=== PATIENT | male | born 1950 | race Hispanic/Latino ===

== ENCOUNTER 2020-10-14 11:08 | Observation (INO) | payer MEDICARE ==
[2020-10-09 14:52] LABS: BASOPHILS # (AUTO) 0.1 (0.0-0.1); EOSINOPHILS # (AUTO) 0.5 (0.0-0.4); EOSINOPHILS % 6.2 % (0.0-6.0); HEMATOCRIT 40.9 % (38.2-49.6); HEMOGLOBIN 13.1 g/dL (14.0-18.0); LYMPHOCYTES # (AUTO) 1.8 (1.0-3.2); LYMPHOCYTES % 24.4 % (18.0-39.1); MEAN CORPUSCULAR HEMOGLOBIN 28.2 pg (28-32); MONOCYTES # (AUTO) 0.5 (0.2-0.8); MONOCYTES % 7.3 % (4.4-11.3); NEUTROPHILS # (AUTO) 4.5 (2.1-6.9); NEUTROPHILS % 60.8 % (38.7-80.0); PLATELET COUNT 185 x10e3/uL (140-360); RED BLOOD COUNT 4.65 x10e6/uL (4.3-5.7); RED CELL DISTRIBUTION WIDTH 13.8 % (11.7-14.4)
[2020-10-09 15:04] LABS: CLARITY,URINE CLEAR (CLEAR); COLOR,URINE YELLOW (YELLOW); KETONES,URINE NEGATIVE (NEGATIVE); LEUKOCYTE ESTERASE ,URINE NEGATIVE (NEGATIVE); NITRITE,URINE NEGATIVE (NEGATIVE); PROTEIN,URINE DIPSTICK NEGATIVE (NEGATIVE); URINE UROBILINOGEN 0.2 mg/dL (0.2 - 1)
[2020-10-09 15:12] LABS: BLOOD UREA NITROGEN 18 mg/dL (7-26); BUN/CREATININE RATIO 20 (6-25); CALCIUM 8.4 mg/dL (8.4-10.2); CARBON DIOXIDE 28 mmol/L (22-29); CHLORIDE 104 mmol/L (98-107); CREATININE, SERUM 0.88 mg/dL (0.72-1.25); EST GLOMERULAR FILTRATION RATE > 60 ML/MIN (60-); GLUCOSE 87 mg/dL (74-118); SODIUM 141 mmol/L (136-145)
[~2020-10-14 11:08] MED LIST: ASPIRIN81 MG PO; DULERA 100 MCG/13 GM INH; FINASTERIDE5 MG PO; FISH OIL 1,0001 EAC2 PO; FLOMAX0.4 MG PO; HYDROCHLOROTHIA25 MG PO; HYDROCODON-ACE1 EAC9 PO; LEVALBUTER0.63 MG/3 NEB; LEVOTHYROXINE75 MCG PO; NASONEX17 GM; ROPIVACAINE 246.25 MG, EPINEPHRINE HCL 1:1000 1ML 0.5 MG, CLONIDINE HCL 0.08 MG, KETORO... INJ ONE
[2020-10-14] MEDS ORDERED: CEFAZOLIN SOD 1 GM/NS 50ML 100 ML IV ONE (12:01)
[2020-10-14] MEDS ORDERED: ROPIVACAINE 0.5% 5 MG/ML 30 ML SDV ONE (12:34)
[2020-10-14] MEDS ORDERED: LIDOCAINE 2%/ EPINEPHRINE 20ML MDV ONE (12:34)
[2020-10-14] MEDS ORDERED: SODIUM CHLORIDE 0.9% 500ML 500 ML ONE (12:38)
[2020-10-14] MEDS ORDERED: VANCOMYCIN HCL 1,000 MG ONE (12:38)
[2020-10-14] MEDS ORDERED: ONDANSETRON HCL INJ 2MG/ML 2ML 2 MG/ML VIAL IV PRN (16:30)
[2020-10-14] MEDS ORDERED: NALOXONE HCL INJ 0.4 MG/ML AMP IV PRN (16:30)
[2020-10-14] MEDS ORDERED: ACETAMINOPHEN 1000 MG/100 ML IV PRN (16:30)
[2020-10-14] MEDS ORDERED: HYDROMORPHONE 0.2MG/ML-SOD CHL 30ML PCA SYRINGE IV PRN (16:30)
[2020-10-14] MEDS ORDERED: EPHEDRINE SULFATE INJ 50 MG/ML VIAL ONE (19:39)
[2020-10-14] MEDS ORDERED: SEVOFLURANE INHAL SOLN 250 ML PEN BTL ONE (19:39)
[2020-10-14] MEDS ORDERED: KETOROLAC TROMETHAMINE 30 MG/ML VIAL ONE (19:39)
[2020-10-14] MEDS ORDERED: LIDOCAINE HCL 2% LOCAL INJ 5 ML SDV VIAL INJ ONE (19:39)
[2020-10-14] MEDS ORDERED: ONDANSETRON HCL INJ 2MG/ML 2ML 2 MG/ML VIAL ONE (19:39)
[2020-10-14] MEDS ORDERED: POVIDONE IODINE 0.05% 0.05 % ML PO ONE (19:39)
[2020-10-14] MEDS ORDERED: DEXAMETHASONE SOD PHOS INJ 4 MG/ML VIAL ONE (19:39)
[2020-10-14] MEDS ORDERED: PROPOFOL IV EMULSION 10 MG/ML 20 ML VIAL ONE (19:39)
[2020-10-14 20:00] VITALS: BP 142/81
[2020-10-14] MEDS: CEFAZOLIN SOD 1 GM/NS 50ML 50 ML IV SCH (20:56)
[2020-10-14] MEDS: SODIUM CHLORIDE 0.9% 1000ML 1,000 ML IV SCH (20:56)
[2020-10-14 20:59] VITALS: BP 142/81
[2020-10-15] VITALS: BP 139/72
[2020-10-15] MEDS: CEFAZOLIN SOD 1 GM/NS 50ML 50 ML IV SCH ×2 (03:36→13:38)
[2020-10-15 04:00] VITALS: BP 137/69
[2020-10-15] MEDS: SODIUM CHLORIDE 0.9% 1000ML 1,000 ML IV SCH (04:00)
[2020-10-15 05:47] LABS: HEMATOCRIT 34.4 % (38.2-49.6); HEMOGLOBIN 11.1 g/dL (14.0-18.0)
[2020-10-15 08:00] VITALS: BP 147/70
[2020-10-15] MEDS ORDERED: RIVAROXABAN 10 MG TABLET PO SCH (08:00)
[2020-10-15] MEDS ORDERED: DOCUSATE SODIUM 100 MG CAP PO PRN (08:15)
[2020-10-15] MEDS ORDERED: ONDANSETRON HCL INJ 2MG/ML 2ML 2 MG/ML VIAL IV PRN (08:15)
[2020-10-15] MEDS ORDERED: TAMSULOSIN HCL 0.4 MG CAP PO SCH (09:00)
[2020-10-15] MEDS ORDERED: FINASTERIDE 5 MG TAB PO SCH (09:00)
[2020-10-15] MEDS ORDERED: LEVOTHYROXINE SODIUM 75 MCG TAB PO SCH (09:00)
[2020-10-15 15:30] VITALS: BP 157/74
== END 2020-10-15 16:30 | disposition home or self-care (01) ==
LOC: OR 11:08 → PACU V 18:34 → MED/SURG 19:52
PROVIDERS: ADMIT Internal Medicine; ATTEND Internal Medicine
DX: M17.11 Unilateral primary osteoarthritis, right knee (principal); S83.8X1D Sprain of other specified parts of right knee, subsequent encounter; Z20.822 Contact with and (suspected) exposure to COVID-19; Z01.818 Encounter for other preprocedural examination; J45.909 Unspecified asthma, uncomplicated; I10 Essential (primary) hypertension; E03.9 Hypothyroidism, unspecified
CPT/HCPCS: 27447; 36415 ×2; 71046; 73560; 80048; 81003; 85014; 85018; 85025; 86850; 86900; 86920; 93005; 97110; 97116 ×2; 97139 ×2; 97162; 97530; C1713 ×3; C1776; G0378 ×2; J0171; J0690 ×2; J1100; J1885; J2001 ×2; J2405; J2704; J2795; J3370; J7030; J7040; U0002

== ENCOUNTER → 2020-10-24 | Outpatient (CLI) | payer MEDICARE ==
[~2020-10-24] MED LIST changes: -ROPIVACAINE 246.25 MG, EPINEPHRINE HCL 1:1000 1ML 0.5 MG, CLONIDINE HCL 0.08 MG, KETORO... INJ ONE
== END ==
LOC: CARD 11:37
PROVIDERS: ATTEND Specialist
DX: R60.9 Edema, unspecified (principal)
CPT/HCPCS: 93971